=== PATIENT | male | born 1990 | race Caucasian/White ===

== ENCOUNTER 2023-04-26 06:22 | Day surgery (SDC) | payer BC, SELFPAY ==
[2023-04-26 08:45] VITALS: BP 142/86
[2023-04-26] MEDS: NORMOSOL-R 1000 IV (08:56)
[2023-04-26] MEDS: CELEBREX 200 MG PO (08:58)
[2023-04-26] MEDS: TYLENOL 1000 MG PO (08:58)
[2023-04-26 11:24] VITALS: BP 108/40; BP 142/86
[2023-04-26 11:30] VITALS: BP 105/57
[2023-04-26 12:00] VITALS: BP 111/57
[2023-04-26 12:30] VITALS: BP 127/71
[2023-04-26 13:00] VITALS: BP 122/72
== END 2023-04-26 13:10 | disposition home or self-care (01) ==
LOC: SDS 06:22
PROVIDERS: ATTENDING PHYSICIAN Orthopaedic Surgery Hand Surgery
DX: S43.431A Superior glenoid labrum lesion of right shoulder, initial encounter (principal); W18.30XA Fall on same level, unspecified, initial encounter
CPT/HCPCS: 29807